=== PATIENT | female | born 1985 | race Caucasian/White ===

== ENCOUNTER 2017-01-15 13:54 | Emergency (ER) | payer OTHER ==
[2017-01-15 13:29] LABS: BASOPHIL% 0.6 % (0-2.5); EOSINOPHIL% 0.6 % (0.0-7.0); HEMATOCRIT 43.4 % (35.0-45.0); HEMOGLOBIN 14.4 gm/dL (12.0-16.0); LYMPHOCYTE# 2.5 X10e3 (1.0-3.5); LYMPHOCYTE% 37.2 % (17.0-45.0); MEAN CELL VOLUME 87.2 FL (83-96); MEAN CORPUSCULAR HEMOGLOBIN 29.1 PG (28-34); MEAN CORPUSCULAR HGB CONC 33.3 g/dL (30-36); MEAN PLATELET VOLUME 8.7 FL (6.5-11.5); MONOCYTE# 0.4 X10e3 (0-1.0); NEUTROPHIL# 3.7 X10e3 (1.5-7.1); NEUTROPHIL% 55.6 % (40-75); PLATELET COUNT 165 X10e3 (140-420); RED BLOOD COUNT 4.97 X10e (3.90-5.30); WHITE BLOOD COUNT 6.7 X10e3 (4.0-10.5)
[2017-01-15 13:31] LABS: DIFF IND NO
[2017-01-15 13:49] LABS: URINE SOURCE CLEAN CATCH
[2017-01-15 13:53] LABS: ALBUMIN SERUM 4.6 g/dL (3.5-5.0); BILIRUBIN, DIRECT 0.1 mg/dL (0.0-0.2); BILIRUBIN,INDIRECT 0.5 mg/dL (0.0-0.9); BILIRUBIN,TOTAL 0.6 mg/dL (0.2-2.0); CALCIUM SERUM 9.1 mg/dL (8.4-10.2); CREATININE SERUM 0.8 mg/dL (0.6-1.4); GLOM FILT RATE Estimated 97.6 mL/min (>60); POTASSIUM 3.9 mmol/L (3.5-5.1)
[2017-01-15 13:55] LABS: URINE APPEARANCE CLEAR; URINE BILIRUBIN NEG (NEG); URINE BLOOD NEG (NEG); URINE COLOR DK YELLOW; URINE GLUCOSE NEG (NEG); URINE KETONE TRACE (NEG); URINE LEUKOCYTE ESTERASE NEG (NEG); URINE NITRATE NEG (NEG); URINE PROTEIN NEG (NEG); URINE SPECIFIC GRAVITY 1.026 (1.003-1.035)
[2017-01-15 14:06] LABS: CULTURE INDICATED? NO
== END 2017-01-15 15:26 | disposition home or self-care (01) ==
LOC: CED 13:54
DX: R10.9 Unspecified abdominal pain (principal); F17.210 Nicotine dependence, cigarettes, uncomplicated; Z88.5 Allergy status to narcotic agent
CPT/HCPCS: 80048; 80076; 81003; 83690; 84703; 85025; 99284

== ENCOUNTER 2017-06-08 21:32 | Emergency (ER) | payer OTHER ==
[~2017-06-08] VITALS: Ht 167.6 cm; Wt 59.0 kg
--- NOTE | ~2017-06-08 | CT4 ---
[facility] A Service of [facility] RADIOLOGY TEXT RESULTS PATIENT: YOLANDA LIZAMA LOCATION: SED : 83 UNIT #: [id number] AGE: [address]: Christopher Gibson MD SEX: F ORDER DR: [id number] [place] [id number] E MR#: [id number] Acc #: [id number] NAME: YOLANDA LIZAMA : 1985 SEX: F STUDY DATE/TIME: 06/08/2017 22:04 UNIT: SED ROOM: STUDY DESCRIPTION: CT Abd and Pelv Wo Cont Attending Physician: Christopher Gibson M.D. Ordering Physician: Christopher Gibson M.D. Primary Care Physician: Primary Care Physician No MEDICAL IMAGING REPORT This report is preliminary unless electronic signature is present. EXAM CT abdomen and pelvis without contrast 06/08/2017 HISTORY 31-year-old female with right flank pain beginning today. COMPARISON None. TECHNIQUE Helical scan performed through the abdomen and pelvis without oral or IV contrast. Coronal and sagittal reformatted images. This CT examination was performed with one or more of the following radiation dose reduction techniques: automatic exposure control, adjustment of mA and/or kV according to patient size, and iterative reconstruction. FINDINGS Visualized lung bases are unremarkable. The liver, spleen, pancreas, gallbladder, both adrenal glands, and both kidneys are within expected limits. No urinary tract stones or hydronephrosis. Abdominal aorta normal in course and caliber. Small bowel is unremarkable without obstruction. Appendix normal. Colon unremarkable. No free fluid or free air. Urinary bladder, uterus, and adnexa are unremarkable. No free pelvic fluid. No acute bony abnormality. IMPRESSION 1. No acute abdominal or pelvic findings. 2. Negative for urinary tract stones or hydronephrosis. 3. Normal appendix. [facility] A Service [facility] RADIOLOGY TEXT RESULTS PATIENT: YOLANDA LIZAMA LOCATION: SED : 84 UNIT #: [id number] AGE: [address]: Christopher Gibson MD SEX: F ORDER DR: Dictated by... Matteo Sandoval M.D. THIS IS AN ELECTRONICALLY VERIFIED REPORT Matteo Sandoval M.D. at 06/09/2017 3:06 PM CHERELLE/renny TD: 06/09/2017 11:22 JOB #: [id number] MEDICAL IMAGING REPORT Page 1 of 1
[2017-06-08] MEDS ORDERED: PROTONIX (21:47)
[2017-06-08 22:21] LABS: URINE SOURCE CLEAN CATCH
[2017-06-08 22:25] LABS: URINE APPEARANCE HAZY; URINE BILIRUBIN NEG (NEG); URINE BLOOD TRACE-INTACT (NEG); URINE COLOR YELLOW; URINE GLUCOSE NEG (NORM); URINE KETONE NEG (NEG); URINE LEUKOCYTE ESTERASE 1+ (NEG); URINE NITRATE POS (NEG); URINE PH 6.5 (5-8); URINE PROTEIN NEG (NEG); URINE SPECIFIC GRAVITY 1.015 (1.003-1.035); URINE UROBILINOGEN 0.2 MG/DL (NORM)
[2017-06-08 22:27] LABS: MICRO INDICATED? YES
[2017-06-08 22:31] LABS: BASOPHIL# 0.1 X10e3 (0-0.3); BASOPHIL% 0.4 % (0-2.5); EOSINOPHIL# 0.1 X10e3 (0-0.7); EOSINOPHIL% 0.6 % (0.0-7.0); HEMOGLOBIN 14.6 gm/dL (12.0-16.0); LYMPHOCYTE# 2.4 X10e3 (1.0-3.5); LYMPHOCYTE% 14.6 % (17.0-45.0); MEAN CELL VOLUME 86.1 FL (83-96); MEAN CORPUSCULAR HEMOGLOBIN 29.3 PG (28-34); MEAN PLATELET VOLUME 7.8 FL (6.5-11.5); MONOCYTE# 0.9 X10e3 (0-1.0); MONOCYTE% 5.5 % (3.0-12.0); NEUTROPHIL# 12.9 X10e3 (1.5-7.1); NEUTROPHIL% 78.9 % (40-75); PLATELET COUNT 344 X10e3 (140-420); RED CELL DISTRIBUTION WIDTH 12.8 % (11.0-15.5); WHITE BLOOD COUNT 16.3 X10e3 (4.0-10.5)
[2017-06-08 22:32] LABS: URINE WBC 100-200 /[HPF] (0-5)
[2017-06-08 22:33] LABS: CULTURE INDICATED? YES; URINE AMORPHOUS SEDIMENT AMORP URATES; URINE BACTERIA 4+ (NEG); URINE MUCUS PRESENT; URINE SQUAMOUS EPITHELIAL CELL FEW /[HPF]
[2017-06-08 22:39] LABS: DIFF IND NO
[2017-06-08 22:48] LABS: GLOM FILT RATE Estimated 74.5 mL/min (>60); POTASSIUM 4.1 mmol/L (3.5-5.1)
== END 2017-06-09 00:08 | disposition home or self-care (01) ==
LOC: SED 21:32
PROVIDERS: Emergency Medicine
DX: N12 Tubulo-interstitial nephritis, not specified as acute or chronic (principal); Z88.5 Allergy status to narcotic agent; Z98.51 Tubal ligation status; F17.200 Nicotine dependence, unspecified, uncomplicated
CPT/HCPCS: 36415; 74176; 80048; 81003; 84703; 85025; 87086; 87088; 87186; 96374; 96375; 99284; J0696; J1885; J2405